=== PATIENT | male | born 1940 | race Caucasian/White ===

== ENCOUNTER → 2019-07-01 | Outpatient (CLI) | payer MEDICARE ==
[~2019-07-01] MED LIST: AMIT10 PO; ASPI81EC PO; Amitriptyline H10 MG PO; FEXO180 PO; FISH1000; FLUT.05NI; GLIP2.5ER PO; LISHYD1012 PO; LISI20 PO; METF500C PO; METO50ER PO; Multiple Vitam1 EAC1; OMEP20ER PO; POTASSIUM GLUC500 MG; PRAV10 PO; Pravachol40 MG PO; UBID100 PO; Vitamin B-122000 MCG
== END | disposition home or self-care (01) ==
LOC: LAB SHORT 13:53 → PLD 13:53
DX: L57.0 Actinic keratosis (principal)
CPT/HCPCS: 88305

== ENCOUNTER → 2021-01-10 | Outpatient (CLI) | payer MEDICARE | END | disposition home or self-care (01) | LOC: LAB SHORT 12:53 → PLD 12:53 | DX: D04.4 Carcinoma in situ of skin of scalp and neck (principal) | CPT/HCPCS: 88305 ==